=== PATIENT | female | born 1965 | race Two or more races ===

== ENCOUNTER 2025-10-26 11:22 | Emergency (ER) | payer MEDICAID, SELFPAY ==
[2025-10-26 11:24] VITALS: BMI 31.6
[2025-10-26 12:08] VITALS: BP 132/75; PULSE 87; RESP 20; TEMP 37.2; O2SAT 97; BMI 26.2
--- NOTE | 2025-10-26 12:10 | XR_ITS ---
Examination: CT brain head without contrast. 2-D sagittal coronal reconstructions Date and time of exam: October 26, 2025, 12:31 p.m. INDICATIONS: Severe pain to the back of the hip beginning 3 days ago CTDI: vol (mGy): 48.6 DLP: (mGycm): 919 Technique: Multiple CT axial sections of the brain have been obtained, 5 mm slice thickness. Contrast has not been administered. 2-D sagittal, coronal reconstructions have been obtained Low dose protocols were performed. One or more of the following dose reduction techniques were used; automated exposure control, adjustment of the mA and/or KV according to patient size, use of iterative reconstruction technique. Findings: No significant ventricular enlargement. Mild chronic ethmoid sphenoid maxillary antral and frontal sinusitis Intra-axial or extra-axial hemorrhage density is not seen. No mass effect or midline shift Basal cisterns are not remarkable. Fourth ventricle is midline. Cranial vault intact. Impression: Negative for acute hemorrhage, mass effect or midline shift
--- NOTE | 2025-10-26 12:10 | PD.EDRME ---
Rapid Medical Screening Exam RME Arrival date/time: 10/26/25 11:22 60-year-old female with no known medical history presents to the emergency room with a chief complaint of a 10 out of 10 headache to the back of the patient's head x 3 days I have greeted and performed a focused initial assessment of this patient. A comprehensive ED assessment and evaluation of the patient, analysis of all test results, and completion of the medical decision making process will be conducted by additional ED providers. Chief Complaint: Headache Vital signs: Vital Signs Temperature 98.9 F 10/26/25 12:08 Pulse Rate 87 10/26/25 12:08 Respiratory Rate 20 10/26/25 12:08 Blood Pressure 132/75 H 10/26/25 12:08 Pulse Oximetry (%) 97 10/26/25 12:08 Oxygen Delivery Method Room Air 10/26/25 12:08 Vital signs reviewed by provider: Yes Exam: 10 out of 10 headache Tenderness to the cerebellar area of the head Clinical Impression: Headache
[2025-10-26 13:07] LABS: Basophils # (Auto) 0.1 Thou/mm3 (0.0-0.2); Basophils % (Auto) 1 % (0-2.5); Eosinophils # (Auto) 1.3 Thou/mm3 (0.0-0.5); Eosinophils % (Auto) 10 % (0-10); Hematocrit 39.4 % (36.0-46.0); Hemoglobin 13.0 g/dL (12.0-16.0); Immature Granulocytes Auto 0.06 Thou/mm3 (0.00-0.00); Lymphocytes # (Auto) 2.0 Thou/mm3 (1.0-4.8); Lymphocytes % (Auto) 15 % (10-50); Mean Corpuscular HGB Conc 33.0 g/dl (31.0-37.0); Mean Corpuscular Hemoglobin 29.4 pg (25.0-35.0); Mean Corpuscular Volume 89 fL (80-100); Monocytes # (Auto) 0.8 Thou/mm3 (0.0-0.8); Monocytes % (Auto) 6 % (0-12); Neutrophils # (Auto) 9.2 Thou/mm3 (1.8-7.7); Neutrophils % (Auto) 68 % (37-80); Nucleated Red Blood Cell # 0.00 Thou/mm3 (0.00-0.00); Nucleated Red Blood Cell % 0 /100 WBC (0); Platelet Count 524 Thou/mm3 (140-440); RDW Standard Deviation 41.0 fL (36.4-46.3); Red Blood Count 4.42 Miln/mm3 (4.00-5.20); White Blood Count 13.5 Thou/mm3 (3.6-11.0)
[2025-10-26 13:23] LABS: Alanine Aminotransferase 23 U/L (10-49); Albumin, Serum 4.6 gm/dL (3.4-4.8); Albumin/Globulin Ratio 1.2 (1.2-2.2); Alkaline Phosphatase 155 U/L (46-116); Anion Gap 12 (7-16); Aspartate Amino Transferase 21 U/L (0-34); BUN/Creatinine Ratio 16 Ratio (12-20); Bilirubin,Total 0.3 mg/dL (0.3-1.2); Blood Urea Nitrogen 11 mg/dL (9-23); C-Reactive Protein 5.3 mg/dL (0.0-0.9); Calcium 9.6 mg/dL (8.3-10.6); Calcium (Corrected) 9.6 mg/dL (8.5-10.1); Carbon Dioxide 26.2 mMol/L (20.0-31.0); Chloride 101 mMol/L (98-107); Creatinine (Component) 0.7 mg/dL (0.6-1.3); Estimated Creatinine Clearance 66.5 mL/min (>60); Globulin 3.7 gm/dL (2.3-3.5); Glucose 111 mg/dL (74-106); Osmolality,Calculated 277 (275-295); Potassium 4.3 mMol/L (3.4-5.1); Sodium 139 mMol/L (136-145); Total Protein 8.3 gm/dL (5.7-8.2); eGFR > 60 See Note
[2025-10-26] MEDS: ONDANSETRON ODT 4 MG TABRAP PO (13:40)
[2025-10-26] MEDS: ACETAMINOPHEN 500 MG TABLET 1000 MG PO (13:41)
--- NOTE | 2025-10-26 14:45 | PD.EDHA ---
ED Headache RME/HPI General Chief Complaint: Headache Stated Complaint: POSTERIOD HEAD PAIN X3 DAYS, BUMPS TO HANDS Time Seen by Provider: 10/26/25 13:43 Source: patient and historical interpreter Arrival date/time: 10/26/25 11:22 Mode of arrival: ambulatory Limitations: language barrier RME / HPI Complaint: headache RME / HPI Narrative: 10/26/25 11:22 60-year-old female with no known medical history presents to the emergency room with a chief complaint of a 10 out of 10 headache to the back of the patient's head x 3 days I have greeted and performed a focused initial assessment of this patient. A comprehensive ED assessment and evaluation of the patient, analysis of all test results, and completion of the medical decision making process will be conducted by additional ED providers. Patient denies any head trauma or events related to the acute headache concern. Patient denies any history of migraine headaches. Additional complaints of some bilateral hand itching was noted. Patient did not look toxic at time of evaluation. Patient does have a history of hypertension, but blood pressure was reasonably controlled at time of evaluation. Patient denies any recent spikes of blood pressure. Exam: 10 out of 10 headache Tenderness to the cerebellar area of the head Impression: Headache Related Data Previous Rx's ?Medication ?Instructions ?Recorded ciprofloxacin HCl 500 mg tablet 500 mg PO BID #14 tabs 10/13/23 (Cipro) acetaminophen 500 mg tablet 500 mg PO Q4H PRN fever or pain 10/26/25 (Tylenol Extra Strength) #30 tabs tramadol 50 mg tablet 50 mg PO Q8H PRN pain #10 tabs 10/26/25 Allergies Allergy/AdvReac Type Severity Reaction Status Date / Time No Known Allergies Allergy Verified 10/26/25 11:27 Review of Systems Review of Systems Systems Reviewed: All systems reviewed, normal except as documented Past Medical History Past Medical History CARDIAC: Positive Cardiac Disorders and Hypertension; Negative Congestive Heart Failure RESPIRATORY: Negative Chronic Obstructive Pulmonary Disease (COPD) GENITOURINARY: Negative Renal Disease ENDOCRINE: Negative Diabetes Mellitus Type 1 or Diabetes Mellitus Type 2 Surgical History SURGICAL: Positive Section Social History SMOKING STATUS: Never smoker ED Exam General Limitations: Present language barrier General appearance: Present alert and in distress (Mild to moderate distress due to headache concerns.) Head Head exam: Present atraumatic and other (Cranial exam was unremarkable. No signs of trauma. No skull depressions or deformities.) Eye Eye exam: Present normal appearance, PERRL and EOMI ENT ENT exam: Present normal exam, normal oropharynx and mucous membranes moist Neck Neck exam: Present normal inspection, full ROM and trachea midline Chest Chest inspection: Present normal inspection and symmetric chest wall rise Respiratory Respiratory exam: Present normal lung sounds bilaterally Cardiovascular Cardiovascular exam: Present regular rate, normal rhythm and normal heart sounds Abdominal Exam Abdominal exam: Present soft and normal bowel sounds Extremities Exam Extremities exam: Present normal inspection and full ROM Back Exam Back exam: Present normal inspection and full ROM Neurological Exam Neurological exam: Present alert, oriented X3 and CN II-XII intact Psychiatric Psychiatric exam: Present normal affect and normal mood Skin Skin exam: Present warm, dry and other (Patient displays some eczema attic signs on bilateral dorsal aspect with dryness and cracking appreciated. No signs of infection.) Course Quality Measures none Orders Category Date Time Status CT head/brain wo con Stat Exams 10/26/25 12:10 Completed CBC Stat Lab 10/26/25 12:46 Results CMP [Comprehensive Metabolic Panel] Stat Lab 10/26/25 12:46 Completed CRP [C-Reactive Protein] Stat Lab 10/26/25 12:46 Completed ESR [Sed Rate (ESR)] Stat Lab 10/26/25 12:46 Results Acetaminophen Tab [Tylenol ES Tab] Med 10/26/25 13:00 Discontinued 1,000 mg PO X1 ONE Ondansetron Odt [Zofran Odt] Med 10/26/25 13:00 Discontinued 4 mg PO X1 ONE As noted above Vital Signs Vital signs: Vital Signs Temperature 98.9 F 10/26/25 12:08 Pulse Rate 87 10/26/25 12:08 Respiratory Rate 20 10/26/25 12:08 Blood Pressure 132/75 H 10/26/25 12:08 Pulse Oximetry (%) 97 10/26/25 12:08 Oxygen Delivery Method Room Air 10/26/25 12:08 As noted above Headache MDM Narrative MDM Narrative:: All studies performed the ED were evaluated by me personally. Serum studies were relatively unremarkable for any systemic concerns. Mild elevation white blood cell count that was nonspecific. CT evaluation of head was unremarkable for any intracranial process. No intracranial hemorrhage or neoplastic formation noted. Patient appears to and had a bad headache. Advised patient utilize pain medication as needed. Additionally, advised patient to utilize a oatmeal-based hand wash such as Aveeno and good moisturizing to aid in her eczema attic skin concerns. [facility] and evaluation. Patient data External records reviewed:: [facility] previous records Clinical information provided by:: patient Social determinants that could affect healthcare access:: none Patient has the following chronic illnesses:: Hypertension How is presenting disease/condition affected by chronic disease/condition?: uneffected by Evaluation data The following diagnostics were reviewed and interpreted by me:: lab results and radiology exam(s) Lab and/or radiology exams considered but not ordered:: None Interpretation Summary: Labs and CT were unremarkable. Patient is suffering from a headache of unknown causes. Medications / Prescriptions Medications or Prescriptions considered but not ordered:: None Medication administrations:: Medication Administration History Discontinued Medications Acetaminophen (Acetaminophen 500 Mg Tablet) 1,000 mg PO X1 ONE Stop: 10/26/25 13:01 Last Admin: 10/26/25 13:41 Dose: 1,000 mg Documented By: Ondansetron HCl (Ondansetron Odt 4 Mg Tabrap) 4 mg PO X1 ONE; Protocol Stop: 10/26/25 13:01 Last Admin: 10/26/25 13:40 Dose: 4 mg Documented By: As noted above Consultations Consultation(s) initiated? (list below): No Diagnosis Differential diagnosis headache: subarachnoid hemorrhage, headache and other (Sepsis, electrolyte abnormality, intracranial neoplasm, headache, eczema) Most likely diagnosis given after review of the tests above:: Headache, eczema Admission Indicated Admission indicated?: not indicated Explain why admission is indicated or not indicated:: Unwarranted Admission Request Was there a request for admission?: No Disposition Plan Disposition Plan: Discharge Discharge Attestation Discharge Attestation: The patient and all family members were given an opportunity to ask questions and understood the discharge instructions. Discharge instructions specifically effects, indications for sooner follow up or return to the emergency department, and the expected course of current diagnosis. Patient condition: Stable Discharge Plan Plan Patient Disposition: HOME (Self Care) Prescriptions/Referrals Prescriptions/Med Rec: New acetaminophen [Tylenol Extra Strength] 500 mg tablet 500 mg PO Q4H PRN (Reason: fever or pain) Qty: 30 0RF tramadol 50 mg tablet 50 mg PO Q8H PRN (Reason: pain) Qty: 10 0RF No Action ciprofloxacin HCl [Cipro] 500 mg tablet 500 mg PO BID Qty: 14 0RF Referrals: Markie Kearney MD [Primary Care Provider, Family Practice] - In 1 week Problem List Clinical Impression: Headache, Eczema Patient/Caregiver Discharge Instructions Education Materials: Self-Care for Headaches, ED Atopic Dermatitis (Adult) Additional Instructions: Advised patient utilize medication as needed for headache relief. If headaches continue, patient will need to follow-up with primary care provider for continued management. Additionally, patient should follow-up with primary care provider for dermatologic referral and evaluation to address her hand rash concerns. Print Language: Khmer Stand Alone Forms: [employer] Award Info., Patient Portal Info Letter
[2025-10-26 18:05] LABS: Sed Rate (ESR) 8 mm/hr (0-30)
== END 2025-10-26 15:27 | disposition home or self-care (01) ==
PROVIDERS: Nurse Practitioner Family; Emergency Provider Emergency Medicine; PCP Family Medicine
DX: L30.9 Dermatitis, unspecified (principal); R51.9 Headache, unspecified; I10 Essential (primary) hypertension
CPT/HCPCS: 36415; 70450; 80053; 85025; 85652; 86140; 99283; Q0162; A9270